=== PATIENT | female | born 1985 | race Caucasian/White ===

== ENCOUNTER 2020-06-22 11:07 | Outpatient (CLI) | payer OTHER | END 2020-06-22 11:11 | disposition home or self-care (01) | LOC: LAB 11:07 | PROVIDERS: ATTEND Emergency Medicine Pediatric Emergency Medicine | DX: Z20.828 Contact with and (suspected) exposure to other viral communicable diseases (principal) ==

== ENCOUNTER 2020-09-24 14:14 | Outpatient (CLI) | payer OTHER | END 2020-09-24 14:28 | disposition HB | LOC: SONOGRAMA 14:14 | DX: N60.02 Solitary cyst of left breast (principal) ==

== ENCOUNTER 2021-01-28 10:23 | Outpatient (CLI) | payer OTHER | END 2021-01-28 10:30 | disposition home or self-care (01) | LOC: RAD 10:23 | DX: N20.0 Calculus of kidney (principal) ==

== ENCOUNTER → 2021-01-31 08:47 | Outpatient (CLI) | payer OTHER | END | disposition home or self-care (01) | LOC: LAB 08:47 | DX: R73.9 Hyperglycemia, unspecified (principal) ==

== ENCOUNTER 2021-07-01 08:00 | Outpatient (CLI) | payer OTHER | END 2021-07-01 08:30 | disposition home or self-care (01) | LOC: PPH VACUNA 08:00 | PROVIDERS: ATTEND Emergency Medicine Pediatric Emergency Medicine | DX: Z23 Encounter for immunization (principal) ==

== ENCOUNTER 2021-07-12 08:00 | Outpatient (CLI) | payer OTHER | END 2021-07-12 08:30 | disposition home or self-care (01) | LOC: PPH VACUNA 08:00 | PROVIDERS: ATTEND Emergency Medicine Pediatric Emergency Medicine | DX: Z23 Encounter for immunization (principal) ==

== ENCOUNTER 2022-06-28 08:00 | Outpatient (CLI) | payer OTHER | END 2022-06-28 08:05 | disposition home or self-care (01) | LOC: PPH VACUNA 08:00 | PROVIDERS: ATTEND Emergency Medicine Pediatric Emergency Medicine | DX: Z23 Encounter for immunization (principal) ==

== ENCOUNTER 2022-06-28 13:53 | Outpatient (CLI) | payer OTHER | END 2022-06-28 13:58 | disposition home or self-care (01) | LOC: PPH VACUNA 13:53 | PROVIDERS: ATTEND Emergency Medicine Pediatric Emergency Medicine | DX: Z23 Encounter for immunization (principal) ==

== ENCOUNTER 2022-07-18 13:50 | Emergency (ER) | payer OTHER ==
[~2022-07-18] VITALS: Ht 160 cm; Wt 94.8 kg
== END 2022-07-18 18:22 | disposition home or self-care (01) ==
LOC: ER 13:50
DX: M25.561 Pain in right knee (principal); M25.571 Pain in right ankle and joints of right foot; W10.9XXA Fall (on) (from) unspecified stairs and steps, initial encounter; Y93.9 Activity, unspecified; Y92.239 Unspecified place in hospital as the place of occurrence of the external cause

== ENCOUNTER 2022-09-11 09:36 | Emergency (ER) | payer OTHER ==
[~2022-09-11] VITALS: Ht 160 cm; Wt 99.8 kg
== END 2022-09-11 15:44 | disposition home or self-care (01) ==
LOC: ER 09:36
DX: R10.32 Left lower quadrant pain (principal); Z91.040 Latex allergy status

== ENCOUNTER → 2022-09-25 13:39 | Outpatient (CLI) | payer OTHER | END | disposition home or self-care (01) | LOC: LAB 13:39 | PROVIDERS: ATTEND General Practice | DX: R05.9 Cough, unspecified (principal); R06.02 Shortness of breath; R50.9 Fever, unspecified; Z20.822 Contact with and (suspected) exposure to COVID-19 ==

== ENCOUNTER 2022-10-31 08:24 | Outpatient (CLI) | payer OTHER | END 2022-10-31 08:29 | disposition home or self-care (01) | LOC: LAB 08:24 | PROVIDERS: ATTEND Urology | DX: N21.0 Calculus in bladder (principal); R31.0 Gross hematuria ==

== ENCOUNTER 2022-11-15 09:14 | Inpatient (IN) | payer OTHER ==
[~2022-11-15] VITALS: Ht 160 cm; Wt 95.3 kg
== END 2022-11-17 13:14 | disposition home or self-care (01) | DRG 694 ==
LOC: O/R 09:14 → SURH 10:00 → SURG 15:58
PROVIDERS: ADMIT Urology; ATTEND Urology
PROC: BT1FZZZ Fluoroscopy of Left Kidney, Ureter and Bladder (ICD-10-PCS; 2022-11-15)
PROC: 0TC18ZZ Extirpation of Matter from Left Kidney, Via Natural or Artificial Opening Endoscopic (ICD-10-PCS; principal; 2022-11-15 10:00)
DX: N20.0 Calculus of kidney (principal); Z20.822 Contact with and (suspected) exposure to COVID-19

== ENCOUNTER 2022-11-24 08:11 | Outpatient (CLI) | payer OTHER | END 2022-11-24 08:16 | disposition home or self-care (01) | LOC: RAD 08:11 | PROVIDERS: ATTEND Urology | DX: N20.0 Calculus of kidney (principal) ==

== ENCOUNTER 2023-01-20 14:17 | Outpatient (CLI) | payer OTHER | END 2023-01-20 14:19 | disposition home or self-care (01) | LOC: LAB 14:17 | PROVIDERS: ATTEND Urology | DX: N20.0 Calculus of kidney (principal) ==

== ENCOUNTER 2023-05-24 10:49 | Outpatient (CLI) | payer OTHER | END 2023-05-24 10:57 | disposition home or self-care (01) | LOC: MAMO-SONO 10:49 | DX: N64.4 Mastodynia (principal); N60.21 Fibroadenosis of right breast; N60.22 Fibroadenosis of left breast; N63.20 Unspecified lump in the left breast, unspecified quadrant; E04.0 Nontoxic diffuse goiter; Z12.31 Encounter for screening mammogram for malignant neoplasm of breast ==

== ENCOUNTER 2023-06-04 10:18 | Outpatient (CLI) | payer OTHER | END 2023-06-04 10:28 | disposition home or self-care (01) | LOC: LAB 10:18 | PROVIDERS: ATTEND Emergency Medicine Pediatric Emergency Medicine | DX: R50.9 Fever, unspecified (principal); Z91.040 Latex allergy status ==

== ENCOUNTER 2023-06-14 12:03 | Emergency (ER) | payer OTHER ==
[~2023-06-14] VITALS: Ht 160 cm; Wt 102.5 kg
== END 2023-06-14 16:00 | disposition home or self-care (01) ==
LOC: ER 12:03
DX: J06.9 Acute upper respiratory infection, unspecified (principal); Z91.040 Latex allergy status; Z20.822 Contact with and (suspected) exposure to COVID-19

== ENCOUNTER 2023-06-15 09:30 | Outpatient (CLI) | payer OTHER | END 2023-06-15 09:40 | disposition home or self-care (01) | LOC: PPH VACUNA 09:30 | PROVIDERS: ATTEND Emergency Medicine Pediatric Emergency Medicine | DX: Z23 Encounter for immunization (principal) | CPT/HCPCS: 90686; G0008 ==

== ENCOUNTER → 2023-08-07 08:43 | Outpatient (CLI) | payer OTHER ==
[2023-08-07 10:33] LABS: HEMATOCRIT 38.4 % (36.0-45.00); MEAN CELL VOLUME 83.7 fL (80.00-100.00); MEAN CORPUSCULAR HEMOGLOBIN 28.2 pg (27.00-32.0); MEAN CORPUSCULAR HGB CONC 33.7 g/dl (32.0-36.0); PLATELET COUNT 373 K/uL (150-450); RED BLOOD COUNT 4.59 M/uL (4.00-6.00); RED CELL DISTRIBUTION WIDTH 14.4 % (11.5-14.5)
[2023-08-07 10:36] LABS: PH,URINE 5.5 (5.0-8.0); URINE APPEARANCE Clear; URINE BILIRRUBIN Negative (NEGATIVE); URINE BLOOD Negative; URINE COLOR Yellow; URINE GLUCOSE Negative (NEGATIVE); URINE LEUKOCYTE Negative; URINE NITRATE Negative; URINE PROTEIN Negative (NEGATIVE); URINE UROBILINOGEN 0.2 E.U./dl
[2023-08-07 10:45] LABS: URINE WBC 9.2 uL (0.0-23.2)
[2023-08-07 11:31] LABS: ALBUMIN 3.3 gm/dL (3.4-5.0); BILIRUBIN TOTAL 0.48 mg/dL (0.3-1.2); CALCIUM 8.3 mg/dL (8.5-10.1); CHOL HDL RATIO 2.4 (0-5.0); CREATININE SERUM 0.77 mg/dL (0.55-1.02); GFR 83.89; GLOBULINA 3.8 G/DL (2.4-3.5); POTASSIUM 4.44 mEq/L (3.5-5.1); T4 FREE 1.02 NG/ML (0.76-1.46); TOTAL PROTEIN 7.1 gm/dL (6.4-8.2); TSH 1.37 uIU/mL (0.358-3.74)
== END | disposition home or self-care (01) ==
LOC: LAB 08:43
DX: R73.03 Prediabetes (principal); E55.9 Vitamin D deficiency, unspecified; N20.0 Calculus of kidney; E66.01 Morbid (severe) obesity due to excess calories; Z11.4 Encounter for screening for human immunodeficiency virus [HIV]; Z11.3 Encounter for screening for infections with a predominantly sexual mode of transmission; Z13.29 Encounter for screening for other suspected endocrine disorder; E78.00 Pure hypercholesterolemia, unspecified; Z86.32 Personal history of gestational diabetes; Z91.040 Latex allergy status

== ENCOUNTER 2023-08-16 08:45 | Outpatient (CLI) | payer OTHER | END 2023-08-16 09:44 | disposition home or self-care (01) | LOC: MRI 08:45 | DX: M54.50 Low back pain, unspecified (principal); M54.16 Radiculopathy, lumbar region; M79.604 Pain in right leg; M79.605 Pain in left leg; Z91.040 Latex allergy status | CPT/HCPCS: 72148 ==

== ENCOUNTER 2023-09-07 15:58 | Outpatient (CLI) | payer OTHER ==
[~2023-09-07 15:58] MED LIST: GABAPENTIN300 M2 PO; NEURONTIN300 MG PO
== END 2023-09-07 23:00 | disposition home or self-care (01) ==
LOC: LAB 15:58
DX: Z34.90 Encounter for supervision of normal pregnancy, unspecified, unspecified trimester (principal)

== ENCOUNTER 2023-09-24 14:08 | Emergency (ER) | payer OTHER ==
[~2023-09-24] VITALS: Ht 160 cm; Wt 102.1 kg
[2023-09-24] MEDS ORDERED: NORFLEX100MG PO (15:48)
[2023-09-24] MEDS ORDERED: DICLOFENAC SODI75 MG PO (15:48)
== END 2023-09-24 16:21 | disposition home or self-care (01) ==
LOC: ER 14:08
DX: M54.9 Dorsalgia, unspecified (principal); Z91.040 Latex allergy status

== ENCOUNTER 2023-12-25 05:40 | Day surgery (SDC) | payer OTHER ==
[2023-12-20 09:47] LABS: HEMATOCRIT 37.2 % (36.0-45.00); HEMOGLOBIN 12.3 g/dL (12.0-15.00); MEAN CORPUSCULAR HEMOGLOBIN 26.4 pg (27.00-32.0); PLATELET COUNT 404 K/uL (150-450); RED BLOOD COUNT 4.64 M/uL (4.00-6.00); RED CELL DISTRIBUTION WIDTH 15.1 % (11.5-14.5)
[2023-12-20 09:49] LABS: PH,URINE 5.5 (5.0-8.0); URINE APPEARANCE Clear; URINE BILIRRUBIN Negative (NEGATIVE); URINE BLOOD Negative; URINE COLOR Yellow; URINE GLUCOSE Negative (NEGATIVE); URINE LEUKOCYTE Negative; URINE NITRATE Negative; URINE PROTEIN Negative (NEGATIVE); URINE UROBILINOGEN 0.2 E.U./dl
[2023-12-20 09:54] LABS: URINE EPITHELIAL CELLS 20.8 uL (0.0-38.8); URINE RBC 2.5 uL (0.0-20.8); URINE WBC 9.4 uL (0.0-23.2)
[2023-12-20 10:16] LABS: INR 0.98; PARTIAL THROMBOPLASTIN TIME 31.6 SECONDS (22.0-34.0); PROTHROMBIN TIME 10.3 SECONDS (9.0-11.5)
[2023-12-20 10:17] LABS: ALBUMIN 3.2 gm/dL (3.4-5.0); BILIRUBIN TOTAL 0.42 mg/dL (0.3-1.2); CALCIUM 8.6 mg/dL (8.5-10.1); CREATININE SERUM 0.79 mg/dL (0.55-1.02); GFR 81.45; GLOBULINA 3.9 G/DL (2.4-3.5); POTASSIUM 4.57 mEq/L (3.5-5.1); TOTAL PROTEIN 7.1 gm/dL (6.4-8.2)
[~2023-12-25 05:40] MED LIST changes: +DICLOFENAC SODI75 MG PO; +NORFLEX100MG PO
[2023-12-25] MEDS ORDERED: POVIDONE-IODINE 118 ML BOTT TOP ONE (08:00)
[2023-12-25] MEDS ORDERED: CEFAZOLIN SODIUM 1,000 MG VIAL IV ONE (08:00)
[2023-12-25] MEDS ORDERED: RINGERS SOLUTION,LACTATED 1,000 ML IV SCH (11:30)
[2023-12-25] MEDS ORDERED: KETOROLAC TROMETHAMINE 30 MG VIAL IU ONE (11:45)
[2023-12-25] MEDS ORDERED: ONDANSETRON HCL 2 MG/ML VIAL IV PRN (11:45)
== END 2023-12-25 14:05 | disposition home or self-care (01) ==
LOC: CIR.AMB 05:40
PROVIDERS: ATTEND General Practice
DX: N84.0 Polyp of corpus uteri (principal); N93.9 Abnormal uterine and vaginal bleeding, unspecified

== ENCOUNTER 2024-01-01 12:35 | Emergency (ER) | payer OTHER ==
[~2024-01-01] VITALS: Ht 160 cm; Wt 102.1 kg
[2024-01-01] MEDS ORDERED: IPRATROPIUM BROMIDE 0.5 MG/2.5 ML AMPUL.NEB IH ONE (14:15)
[2024-01-01] MEDS ORDERED: LEVALBUTEROL HCL 0.63 MG/3 ML SOLUTION IH ONE (14:15)
[2024-01-01 14:26] LABS: HEMATOCRIT 37.2 % (36.0-45.00); HEMOGLOBIN 12.4 g/dL (12.0-15.00); MEAN CORPUSCULAR HGB CONC 33.3 g/dl (32.0-36.0); PLATELET COUNT 414 K/uL (150-450); RED BLOOD COUNT 4.59 M/uL (4.00-6.00); RED CELL DISTRIBUTION WIDTH 15.5 % (11.5-14.5)
== END 2024-01-01 15:44 | disposition home or self-care (01) ==
LOC: ER 12:35
PROVIDERS: General Practice
DX: J45.901 Unspecified asthma with (acute) exacerbation (principal); Z20.822 Contact with and (suspected) exposure to COVID-19; Z91.040 Latex allergy status

== ENCOUNTER 2024-01-16 17:42 | Emergency (ER) | payer OTHER ==
[~2024-01-16] VITALS: Ht 160 cm; Wt 102.1 kg
[2024-01-16] MEDS ORDERED: ORPHENADRINE CITRATE 30 MG/ML AMPUL IM STA (19:55)
[2024-01-16] MEDS ORDERED: KETOROLAC TROMETHAMINE 60 MG VIAL IM STA (19:55)
== END 2024-01-16 20:19 | disposition home or self-care (01) ==
LOC: ER 17:42
DX: G24.3 Spasmodic torticollis (principal); Z91.040 Latex allergy status

== ENCOUNTER 2024-04-14 07:25 | Outpatient (CLI) | payer OTHER | END 2024-04-14 17:16 | disposition home or self-care (01) | LOC: LAB 07:25 | DX: E11.65 Type 2 diabetes mellitus with hyperglycemia (principal) ==

== ENCOUNTER 2024-04-14 07:49 | Outpatient (CLI) | payer OTHER | END 2024-04-14 07:57 | disposition home or self-care (01) | LOC: RAD 07:49 | DX: M79.671 Pain in right foot (principal); M79.672 Pain in left foot ==

== ENCOUNTER → 2024-06-29 | Emergency (ER) | payer OTHER ==
[~2024-06-29] VITALS: Ht 160 cm; Wt 103.0 kg
[~2024-06-29] MED LIST changes: +0.9 % SODIUM CHLORIDE 1,000 ML IV ONE; +CEFTRIAXONE SODIUM 1,000 MG VIAL IV ONE; +FAMOtidine 10 MG/ML (4ML VIAL) IV ONE; +GLUMETZA500 MG PO; +KETOROLAC TROMETHAMINE 60 MG VIAL IM ONE; +ONDANSETRON HCL 2 MG/ML VIAL IV ONE; +TAMSULOSIN HCL 0.4 MG CAP PO ONE
[2024-06-29 14:07] LABS: HEMATOCRIT 40.6 % (36.0-45.00); HEMOGLOBIN 13.7 g/dL (12.0-15.00); MEAN CELL VOLUME 84.6 fL (80.00-100.00); MEAN CORPUSCULAR HEMOGLOBIN 28.6 pg (27.00-32.0); MEAN CORPUSCULAR HGB CONC 33.8 g/dl (32.0-36.0); PLATELET COUNT 384 K/uL (150-450)
[2024-06-29 14:38] LABS: URINE APPEARANCE Clear; URINE BILIRRUBIN Negative (NEGATIVE); URINE BLOOD Large; URINE COLOR Yellow; URINE KETONE Negative (NEGATIVE); URINE LEUKOCYTE Negative; URINE NITRATE Negative; URINE PROTEIN Negative (NEGATIVE); URINE UROBILINOGEN 0.2 E.U./dl
[2024-06-29 14:41] LABS: URINE BACTERIA 374.1 uL (0.0-1933); URINE EPITHELIAL CELLS 14.6 uL (0.0-38.8); URINE RBC 360.1 uL (0.0-20.8)
[2024-06-29 14:48] LABS: URINE GLUCOSE >=1000 MG/DL (NEGATIVE)
[2024-06-29 15:12] LABS: ALKALINE PHOSPHATASE 156 U/L (50-136); ALT/SGPT 16 U/L (12-78); AMYLASE 43 U/L (25-115); ANION GAP 9 (10.0-20.0); AST/SGOT 10 U/L (15-37); BILIRUBIN TOTAL 0.26 mg/dL (0.3-1.2); BLOOD UREA NITROGEN 12 mg/dL (7-18); BUN CREA RATIO 15 (7.0-25.0); CALCIUM 8.3 mg/dL (8.5-10.1); CARBON DIOXIDE 25 mEq/L (21-32); CHLORIDE 111 mmol/L (98-107); CREATININE SERUM 0.82 mg/dL (0.55-1.02); GFR 77.61; GLOBULINA 3.7 G/DL (2.4-3.5); GLUCOSE FASTING 170 mg/dL (65-100); LIPASE 53 U/L (13-75); OSMOLALITY SERUM 285 MOSM/KG (275-295); POTASSIUM 4.15 mEq/L (3.5-5.1); SODIUM 141 mmol/L (136-145); TOTAL PROTEIN 6.7 gm/dL (6.4-8.2)
[2024-06-29 15:36] LABS: HCG QUANTITATIVE < 1 mUI/mL (1-3)
== END | disposition left against medical advice (07) ==
LOC: ER 12:28
PROVIDERS: General Practice
DX: R10.9 Unspecified abdominal pain (principal); E11.9 Type 2 diabetes mellitus without complications; Z79.84 Long term (current) use of oral hypoglycemic drugs; Z91.040 Latex allergy status
CPT/HCPCS: 36415; 74177; Q9965

== ENCOUNTER 2024-07-10 01:50 | Outpatient (CLI) | payer OTHER ==
[~2024-07-10 01:50] MED LIST changes: -0.9 % SODIUM CHLORIDE 1,000 ML IV ONE; -CEFTRIAXONE SODIUM 1,000 MG VIAL IV ONE; -FAMOtidine 10 MG/ML (4ML VIAL) IV ONE; -KETOROLAC TROMETHAMINE 60 MG VIAL IM ONE; -ONDANSETRON HCL 2 MG/ML VIAL IV ONE; -TAMSULOSIN HCL 0.4 MG CAP PO ONE
== END 2024-07-10 02:00 | disposition home or self-care (01) ==
LOC: PPH VACUNA 01:50
PROVIDERS: ATTEND Emergency Medicine Pediatric Emergency Medicine
DX: Z23 Encounter for immunization (principal)

== ENCOUNTER 2024-07-10 10:32 | Outpatient (CLI) | payer OTHER | END 2024-07-10 10:38 | disposition home or self-care (01) | LOC: MAMO-SONO 10:32 | PROVIDERS: ATTEND Surgery | DX: N60.11 Diffuse cystic mastopathy of right breast (principal); N60.12 Diffuse cystic mastopathy of left breast ==

== ENCOUNTER 2024-08-01 10:46 | Outpatient (CLI) | payer OTHER | END 2024-08-01 10:48 | disposition home or self-care (01) | LOC: NUCLEAR 10:46 | PROVIDERS: ATTEND Urology | DX: N13.1 Hydronephrosis with ureteral stricture, not elsewhere classified (principal) ==

== ENCOUNTER 2024-08-11 08:28 | Outpatient (CLI) | payer OTHER ==
[2024-08-11 09:59] LABS: ALBUMIN 3.4 gm/dL (3.4-5.0); BILIRUBIN TOTAL 0.37 mg/dL (0.3-1.2); CALCIUM 8.4 mg/dL (8.5-10.1); CREATININE SERUM 0.87 mg/dL (0.55-1.02); GFR 72.49; GLOBULINA 3.4 G/DL (2.4-3.5); POTASSIUM 4.31 mEq/L (3.5-5.1); TOTAL PROTEIN 6.8 gm/dL (6.4-8.2)
== END 2024-08-11 08:30 | disposition home or self-care (01) ==
LOC: LAB 08:28
DX: E11.65 Type 2 diabetes mellitus with hyperglycemia (principal)

== ENCOUNTER 2024-08-11 08:44 | Outpatient (CLI) | payer OTHER | END 2024-08-11 08:47 | disposition home or self-care (01) | LOC: RAD 08:44 | PROVIDERS: ATTEND Urology | DX: N20.0 Calculus of kidney (principal) ==

== ENCOUNTER 2024-09-24 09:52 | Outpatient (CLI) | payer OTHER | END 2024-09-24 10:00 | disposition home or self-care (01) | LOC: RAD 09:52 | PROVIDERS: ATTEND Urology | DX: N20.0 Calculus of kidney (principal) ==

== ENCOUNTER → 2024-10-28 | Emergency (ER) | payer OTHER ==
[~2024-10-28] VITALS: Ht 160 cm; Wt 122.9 kg
== END | disposition left against medical advice (07) ==
LOC: ER 13:45
DX: Z53.21 Procedure and treatment not carried out due to patient leaving prior to being seen by health care provider (principal)

== ENCOUNTER 2024-11-05 07:00 | Emergency (ER) | payer OTHER ==
[~2024-11-05] VITALS: Ht 160 cm; Wt 102.1 kg
[2024-11-05 07:33] VITALS: BP 130/78; O2SAT 97
[2024-11-05] MEDS ORDERED: PROMETHAZINE HCL 50 MG/ML AMPUL IM STA (08:05)
[2024-11-05] MEDS ORDERED: KETOROLAC TROMETHAMINE 30 MG VIAL IV STA (08:06)
[2024-11-05] MEDS ORDERED: TAMSULOSIN HCL 0.4 MG CAP PO STA (08:06)
[2024-11-05] MEDS ORDERED: TAMSULOSIN HCL 0.4 MG CAP PO ONE (08:14)
[2024-11-05] MEDS ORDERED: SODIUM CHLORIDE 0.45 % 1,000 ML IV ONE (08:15)
[2024-11-05] MEDS ORDERED: PROMETHAZINE HCL 50 MG/ML AMPUL IM ONE (08:15)
[2024-11-05] MEDS ORDERED: KETOROLAC TROMETHAMINE 30 MG VIAL ONE (08:15)
[2024-11-05 08:43] LABS: HEMATOCRIT 40.2 % (36.0-45.00); HEMOGLOBIN 13.5 g/dL (12.0-15.00); MEAN CORPUSCULAR HEMOGLOBIN 28.5 pg (27.00-32.0); MEAN CORPUSCULAR HGB CONC 33.5 g/dl (32.0-36.0); PLATELET COUNT 409 K/uL (150-450); RED BLOOD COUNT 4.74 M/uL (4.00-6.00); RED CELL DISTRIBUTION WIDTH 14.4 % (11.5-14.5)
[2024-11-05 09:03] LABS: CALCIUM 8.6 mg/dL (8.5-10.1); CREATININE SERUM 0.83 mg/dL (0.55-1.02); GFR 76.53; POTASSIUM 4.11 mEq/L (3.5-5.1)
[2024-11-05 09:17] LABS: URINE APPEARANCE Cloudy; URINE BILIRRUBIN Negative (NEGATIVE); URINE BLOOD Large; URINE COLOR Yellow; URINE KETONE Negative (NEGATIVE); URINE LEUKOCYTE Negative; URINE NITRATE Negative; URINE UROBILINOGEN 0.2 E.U./dl
[2024-11-05 09:18] LABS: URINE EPITHELIAL CELLS 42.2 uL (0.0-38.8); URINE RBC 309.3 uL (0.0-20.8); URINE WBC 25.8 uL (0.0-23.2)
[2024-11-05 09:38] LABS: URINE CAST 1.03 uL (0.0-1.40); URINE GLUCOSE 500 MG/DL (NEGATIVE)
[2024-11-05 09:39] LABS: URINE PROTEIN 100 (NEGATIVE)
== END 2024-11-05 12:59 | disposition home or self-care (01) ==
LOC: ER 07:03
PROVIDERS: General Practice
DX: R10.31 Right lower quadrant pain (principal); N20.0 Calculus of kidney; Z91.040 Latex allergy status

== ENCOUNTER 2024-12-09 14:19 | Outpatient (CLI) | payer OTHER ==
[2024-12-09 14:53] LABS: PH,URINE 5.5 (5.0-8.0); URINE APPEARANCE Clear; URINE BILIRRUBIN Negative (NEGATIVE); URINE BLOOD Negative; URINE COLOR Yellow; URINE KETONE Negative (NEGATIVE); URINE LEUKOCYTE Negative; URINE NITRATE Negative; URINE PROTEIN Negative (NEGATIVE); URINE UROBILINOGEN 0.2 E.U./dl
[2024-12-09 14:57] LABS: URINE BACTERIA 239.8 uL (0.0-1933); URINE EPITHELIAL CELLS 6.6 uL (0.0-38.8); URINE RBC 14.1 uL (0.0-20.8); URINE WBC 12.1 uL (0.0-23.2)
[2024-12-09 15:18] LABS: URINE CAST 0.14 uL (0.0-1.40); URINE GLUCOSE 250 MG/DL (NEGATIVE)
== END 2024-12-09 14:32 | disposition home or self-care (01) ==
LOC: LAB 14:19
PROVIDERS: ATTEND General Practice
DX: N39.0 Urinary tract infection, site not specified (principal)

== ENCOUNTER 2025-01-16 09:55 | Outpatient (CLI) | payer OTHER | END 2025-01-16 09:57 | disposition home or self-care (01) | LOC: RAD 09:55 | DX: M79.672 Pain in left foot (principal) ==

== ENCOUNTER 2025-01-20 08:46 | Outpatient (CLI) | payer OTHER ==
[2025-01-20 09:41] LABS: HEMATOCRIT 39.4 % (36.0-45.00); HEMOGLOBIN 13.5 g/dL (12.0-15.00); MEAN CELL VOLUME 84.8 fL (80.00-100.00); MEAN CORPUSCULAR HEMOGLOBIN 28.9 pg (27.00-32.0); MEAN CORPUSCULAR HGB CONC 34.1 g/dl (32.0-36.0); PLATELET COUNT 418 K/uL (150-450); RED BLOOD COUNT 4.65 M/uL (4.00-6.00); RED CELL DISTRIBUTION WIDTH 14.1 % (11.5-14.5)
[2025-01-20 10:25] LABS: ALBUMIN 3.5 gm/dL (3.4-5.0); BILIRUBIN TOTAL 0.68 mg/dL (0.3-1.2); CALCIUM 8.8 mg/dL (8.5-10.1); CREATININE SERUM 0.75 mg/dL (0.55-1.02); GFR 86.03; GLOBULINA 3.4 G/DL (2.4-3.5); POTASSIUM 4.26 mEq/L (3.5-5.1); TOTAL PROTEIN 6.9 gm/dL (6.4-8.2)
== END 2025-01-20 08:55 | disposition home or self-care (01) ==
LOC: LAB 08:46
PROVIDERS: ATTEND Internal Medicine
DX: E11.65 Type 2 diabetes mellitus with hyperglycemia (principal); E11.9 Type 2 diabetes mellitus without complications

== ENCOUNTER 2025-02-24 11:18 | Outpatient (CLI) | payer OTHER | END 2025-02-24 11:24 | disposition home or self-care (01) | LOC: MRI 11:18 | DX: M79.672 Pain in left foot (principal) | CPT/HCPCS: 73718 ==

== ENCOUNTER 2025-03-19 07:13 | Outpatient (CLI) | payer OTHER ==
[2025-03-19 08:22] LABS: CHOL HDL RATIO 1.7 (0-5.0); TSH 1.69 uIU/mL (0.358-3.74)
[2025-03-19 08:36] LABS: URINE APPEARANCE Clear; URINE BILIRRUBIN Negative (NEGATIVE); URINE BLOOD Negative; URINE COLOR Yellow; URINE GLUCOSE Negative (NEGATIVE); URINE KETONE Negative (NEGATIVE); URINE LEUKOCYTE Negative; URINE NITRATE Negative; URINE PROTEIN Negative (NEGATIVE)
[2025-03-19 08:42] LABS: URINE BACTERIA 161.5 uL (0.0-1933); URINE EPITHELIAL CELLS 9.9 uL (0.0-38.8); URINE RBC 6.6 uL (0.0-20.8); URINE WBC 4.2 uL (0.0-23.2)
[2025-03-19 09:25] LABS: URINE CAST 0.29 uL (0.0-1.40)
== END 2025-03-19 07:20 | disposition home or self-care (01) ==
LOC: LAB 07:13
DX: E55.9 Vitamin D deficiency, unspecified (principal); N39.0 Urinary tract infection, site not specified; E03.9 Hypothyroidism, unspecified; E78.5 Hyperlipidemia, unspecified; R80.9 Proteinuria, unspecified

== ENCOUNTER 2025-03-24 10:08 | Outpatient (CLI) | payer OTHER ==
[2025-03-25 05:07] LABS: HEPATITIS A ANTIBODY IGG Negative (Negative); HEPATITIS B SURFACE ANTIBODY Reactive (.); HEPATITIS C VIRUS ANTIBODY Non Reactive (Non Reactive)
== END 2025-03-24 14:26 | disposition home or self-care (01) ==
LOC: LAB 10:08
DX: A64 Unspecified sexually transmitted disease (principal); B19.9 Unspecified viral hepatitis without hepatic coma

== ENCOUNTER 2025-03-26 08:58 | Outpatient (CLI) | payer OTHER | END 2025-03-26 09:03 | disposition home or self-care (01) | LOC: LAB 08:58 | DX: N39.0 Urinary tract infection, site not specified (principal); E55.9 Vitamin D deficiency, unspecified; E03.9 Hypothyroidism, unspecified; E78.5 Hyperlipidemia, unspecified; R80.9 Proteinuria, unspecified ==

== ENCOUNTER 2025-03-31 15:55 | Outpatient (CLI) | payer OTHER ==
[2025-03-31 16:54] LABS: T4 FREE 1.11 NG/ML (0.76-1.46); TSH 0.819 uIU/mL (0.358-3.74)
== END 2025-03-31 15:59 | disposition home or self-care (01) ==
LOC: LAB 15:55
PROVIDERS: ATTEND General Practice
DX: D64.9 Anemia, unspecified (principal); E03.8 Other specified hypothyroidism; Z12.11 Encounter for screening for malignant neoplasm of colon; N95.1 Menopausal and female climacteric states; I10 Essential (primary) hypertension; C51.9 Malignant neoplasm of vulva, unspecified; N30.00 Acute cystitis without hematuria; E83.51 Hypocalcemia; A64 Unspecified sexually transmitted disease; N39.0 Urinary tract infection, site not specified; R97.8 Other abnormal tumor markers; R79.89 Other specified abnormal findings of blood chemistry; E55.9 Vitamin D deficiency, unspecified; A60.9 Anogenital herpesviral infection, unspecified

== ENCOUNTER 2025-07-23 09:52 | Emergency (ER) | payer OTHER ==
[~2025-07-23] VITALS: Ht 160 cm; Wt 99.3 kg
[2025-07-23] MEDS ORDERED: KETOROLAC TROMETHAMINE 60 MG VIAL IM ONE ×2 (11:00→11:21)
== END 2025-07-23 12:26 | disposition home or self-care (01) ==
LOC: ER 09:52
DX: S61.452A Open bite of left hand, initial encounter (principal); W54.0XXA Bitten by dog, initial encounter; Y93.89 Activity, other specified; Y92.488 Other paved roadways as the place of occurrence of the external cause; Z91.040 Latex allergy status; E11.9 Type 2 diabetes mellitus without complications; Z79.84 Long term (current) use of oral hypoglycemic drugs

== ENCOUNTER 2025-08-13 14:55 | Outpatient (CLI) | payer OTHER | END 2025-08-13 15:05 | disposition home or self-care (01) | LOC: PPH VACUNA 14:55 | PROVIDERS: ATTEND Emergency Medicine Pediatric Emergency Medicine | DX: Z23 Encounter for immunization (principal) ==

== ENCOUNTER 2025-08-18 07:20 | Outpatient (CLI) | payer OTHER ==
[2025-08-18 08:46] LABS: BASO % 0.4 % (0.1-1.2); EOS # 0.10 (0.04-0.54); EOS % 1.3 % (0.7-7.0); LYMPH # 1.72 (1.18-3.74); LYMPH % 22.3 % (19.3-53.1); MEAN PLATELET VOLUME 9.40 fl (9.4-12.4); MONO # 0.47 (0.24-0.82); MONO % 6.1 % (4.7-12.5); NEUT # 5.37 (1.56-6.13); NEUT % 69.5 % (34.0-71.1); RED CELL DISTRIBUTION WIDTH 14.2 % (11.6-14.4)
[2025-08-18 08:58] LABS: URINE APPEARANCE Clear; URINE BILIRRUBIN Negative (NEGATIVE); URINE BLOOD Negative; URINE COLOR Yellow; URINE GLUCOSE Negative (NEGATIVE); URINE KETONE Trace (NEGATIVE); URINE LEUKOCYTE Negative; URINE NITRATE Negative; URINE PROTEIN Negative (NEGATIVE); URINE UROBILINOGEN 0.2 E.U./dl
[2025-08-18 09:02] LABS: URINE BACTERIA 106.7 uL (0.0-1933); URINE EPITHELIAL CELLS 15.5 uL (0.0-38.8); URINE RBC 3.6 uL (0.0-20.8); URINE WBC 5.0 uL (0.0-23.2)
[2025-08-18 09:07] LABS: URINE CAST 0.58 uL (0.0-1.40)
[2025-08-18 09:43] LABS: ALT/SGPT 24.0 U/L (12-78); AST/SGOT 16.0 U/L (15-37); BILIRUBIN TOTAL 0.58 mg/dL (0.3-1.2); BUN CREA RATIO 13.0 (7.0-25.0); CHOL HDL RATIO 2.3 (0-5.0); CREATININE SERUM 0.76 mg/dL (0.55-1.02); GFR 84.29; GLOBULINA 3.4 G/DL (2.4-3.5); GLUCOSE FASTING 120.0 mg/dL (65-100); HDL 62.0 mg/dl (40-60); LDL 69.0 mg/dl (0-130); OSMOLALITY SERUM 276.0 MOSM/KG (275-295); T4 FREE 1.17 NG/ML (0.76-1.46); TSH 0.951 uIU/mL (0.358-3.74); VLDL 12.0 (0-39)
== END 2025-08-18 07:24 | disposition home or self-care (01) ==
LOC: LAB 07:20
DX: E03.9 Hypothyroidism, unspecified (principal); E11.9 Type 2 diabetes mellitus without complications; E78.5 Hyperlipidemia, unspecified; D64.9 Anemia, unspecified; R80.9 Proteinuria, unspecified; N39.0 Urinary tract infection, site not specified

== ENCOUNTER 2025-09-22 14:49 | Emergency (ER) | payer OTHER ==
[~2025-09-22] VITALS: Ht 162.6 cm; Wt 99.8 kg
[2025-09-22] MEDS ORDERED: ZESTRIL5 MG (16:39)
[2025-09-22] MEDS ORDERED: LIPITOR40 M1 (16:39)
[2025-09-22 16:40] VITALS: BP 112/76; O2SAT 98
[2025-09-22] MEDS ORDERED: ONDANSETRON HCL 2 MG/ML VIAL IV STA (17:18)
[2025-09-22] MEDS ORDERED: FAMOTIDINE/PF 20 MG/2 ML VIAL IV STA (17:18)
[2025-09-22] MEDS ORDERED: LACTOBACILLUS ACIDOPHILUS 1 CAP CAP PO STA (17:18)
[2025-09-22] MEDS ORDERED: 0.9 % SODIUM CHLORIDE 1,000 ML IV STA (17:18)
[2025-09-22] MEDS ORDERED: KETOROLAC TROMETHAMINE 30 MG VIAL IV STA (17:24)
[2025-09-22] MEDS ORDERED: LACTOBACILLUS ACIDOPHILUS 1 CAP CAP PO ONE (17:43)
[2025-09-22] MEDS ORDERED: FAMOTIDINE/PF 20 MG/2 ML VIAL ONE (17:43)
[2025-09-22] MEDS ORDERED: ONDANSETRON HCL 2 MG/ML VIAL ONE (17:43)
[2025-09-22 17:51] LABS: BASO % 0.3 % (0.1-1.2); EOS # 0.13 (0.04-0.54); EOS % 1.2 % (0.7-7.0); LYMPH # 2.79 (1.18-3.74); LYMPH % 25.5 % (19.3-53.1); MEAN PLATELET VOLUME 9.20 fl (9.4-12.4); MONO # 0.80 (0.24-0.82); MONO % 7.3 % (4.7-12.5); NEUT # 7.14 (1.56-6.13); NEUT % 65.4 % (34.0-71.1); RED CELL DISTRIBUTION WIDTH 13.8 % (11.6-14.4)
[2025-09-22 18:01] LABS: ERYTHROCYTE SEDIMENTATION RATE 19 mm/hr (0-20)
[2025-09-22 18:20] LABS: INR 1.0
[2025-09-22 18:25] LABS: ALT/SGPT 32.0 U/L (12-78); AST/SGOT 19.0 U/L (15-37); BILIRUBIN TOTAL 0.36 mg/dL (0.3-1.2); BUN CREA RATIO 13.0 (7.0-25.0); CREATININE SERUM 0.76 mg/dL (0.55-1.02); GFR 84.29; GLOBULINA 4.3 G/DL (2.4-3.5); GLUCOSE FASTING 84.0 mg/dL (65-100); OSMOLALITY SERUM 279.0 MOSM/KG (275-295)
[2025-09-22 18:33] LABS: URINE APPEARANCE Clear; URINE BILIRRUBIN Negative (NEGATIVE); URINE BLOOD Negative; URINE COLOR Yellow; URINE GLUCOSE Negative (NEGATIVE); URINE KETONE Trace (NEGATIVE); URINE LEUKOCYTE Negative; URINE NITRATE Negative; URINE PROTEIN Negative (NEGATIVE); URINE UROBILINOGEN 0.2 E.U./dl
[2025-09-22 18:37] LABS: URINE BACTERIA 1346.4 uL (0.0-1933); URINE EPITHELIAL CELLS 44.1 uL (0.0-38.8); URINE RBC 6.5 uL (0.0-20.8); URINE WBC 19.0 uL (0.0-23.2)
[2025-09-22 18:47] LABS: URINE CAST 0.84 uL (0.0-1.40)
[2025-09-22 18:53] LABS: COVID-19 AG NEGATIVE (NEGATIVE)
[2025-09-22] MEDS ORDERED: CIPROFLOXACIN IN 5 % DEXTROSE 400 MG/200 ML PIGGYBAG IV STA (19:54)
[2025-09-22] MEDS ORDERED: METRONIDAZOLE/SODIUM CHLORIDE 500 MG/100 ML PIGGYBACK IV STA (19:54)
[2025-09-22] MEDS ORDERED: METRONIDAZOLE/SODIUM CHLORIDE 500 MG/100 ML PIGGYBACK IV ONE (19:56)
[2025-09-22] MEDS ORDERED: CIPROFLOXACIN IN 5 % DEXTROSE 400 MG/200 ML PIGGYBAG IV ONE (19:56)
[2025-09-22] MEDS ORDERED: CIPRO500 MG PO (21:45)
[2025-09-22] MEDS ORDERED: PEPCID AC20 MG PO (21:45)
[2025-09-22] MEDS ORDERED: METRONIDAZOLE500 MG PO (21:45)
[2025-09-22] MEDS ORDERED: INTESTINEX680 M2 PO (21:45)
[2025-09-22] MEDS ORDERED: TAMSULOSIN HCL0.4 MG PO (21:45)
== END 2025-09-22 22:56 | disposition home or self-care (01) ==
LOC: ER 14:49
PROVIDERS: Physician Assistant Medical
DX: E86.0 Dehydration (principal); N20.0 Calculus of kidney; A08.8 Other specified intestinal infections; R10.9 Unspecified abdominal pain; R51.9 Headache, unspecified; R11.0 Nausea; E11.9 Type 2 diabetes mellitus without complications; Z79.84 Long term (current) use of oral hypoglycemic drugs; Z20.822 Contact with and (suspected) exposure to COVID-19; Z91.040 Latex allergy status
CPT/HCPCS: 36415; 74177; Q9965